=== PATIENT | male | born 1975 | race Caucasian/White ===

== ENCOUNTER 2016-02-12 21:55 | Emergency (ER) | payer OTHER ==
[2016-02-12] MEDS ORDERED: Sodium Chloride 0.9% 10 ML Syringe FLUSH PRN (22:13)
[2016-02-12] MEDS ORDERED: Morphine 4 MG/ML Syringe IVPUSH ONE (22:14)
[2016-02-12] MEDS ORDERED: Ondansetron 4 MG/2 ML SDV IVPUSH ONE (22:14)
[2016-02-12] MEDS ORDERED: Sodium Chloride 0.9% 1,000 ML IV ONE (22:14)
[2016-02-12 22:52] LABS: BASOPHILS PERCENT AUTO 0.3 % (0.2-1.2); EOSINOPHILS PERCENT AUTO 4.7 % (0.0-4.0); HEMATOCRIT 40.8 % (40.0-52.0); LYMPHOCYTES PERCENT AUTO 22.5 % (25.0-50.0); MEAN CORPUSCULAR HEMOGLOBIN 27.4 pg (26.0-32.0); MEAN CORPUSCULAR HGB CONC 31.9 g/dL (32.0-36.0); MEAN CORPUSCULAR VOLUME 85.9 fL (78.0-93.0); MONOCYTES PERCENT AUTO 9.5 % (2.0-11.0); RDW CV 13.2 % (10.0-15.0); RED BLOOD CELL COUNT 4.75 x10^6/uL (4.5-6.0)
[2016-02-12 23:11] LABS: APPEARANCE,URINE CLEAR (CLEAR); BILIRUBIN,URINE NEGATIVE (NEGATIVE); GLUCOSE,URINE NEGATIVE (NEGATIVE); KETONES,URINE NEGATIVE (NEGATIVE); LEUKOCYTE ESTERASE,URINE NEGATIVE (NEGATIVE); NITRITE,URINE NEGATIVE (NEGATIVE); OCCULT BLOOD,URINE NEGATIVE (NEGATIVE); PROTEIN,URINE NEGATIVE (NEGATIVE); UROBILINOGEN,URINE 0.2 EU/dL (0.2)
[2016-02-12 23:12] LABS: BACTERIA,URINE RARE /HPF (NEGATIVE); MUCUS,URINE NOT SEEN /LPF (NEGATIVE); RBC,URINE 0-5 /HPF (NOT SEEN); WBC,URINE 0-5 /HPF (NOT SEEN)
[2016-02-12 23:27] LABS: A/G RATIO 0.88; ALBUMIN 3.6 g/dL (3.4-5.0); ALKALINE PHOSPHATASE 92 U/L (46-116); BILIRUBIN TOTAL 0.3 mg/dL (0.2-1.0); C-REACTIVE PROTEIN 0.7 mg/dL (<=0.9); CALCIUM 8.7 mg/dL (8.5-10.1); CHLORIDE,CL 104 mmol/L (98-107); CORRECTED CALCIUM 9.02 mg/dL (8.5-10.1); CREATININE 0.9 mg/dL (0.70-1.30); ESTIMATED GFR > 60; GLUCOSE RANDOM 90 mg/dL (74-106); TROPONIN I < 0.017 ng/mL (<=0.056)
[2016-02-13 02:02] VITALS: BP 140/88
--- NOTE | 2016-02-13 07:14 | ER ---
Date of Service: 02/12/2016 SUBJECTIVE: The patient presents to the emergency room with complaints of lightheadedness and vertigo. The patient states that he has been experiencing these symptoms throughout the day today. He states that he has not been experiencing any chest pain or shortness of breath. He denies any abdominal discomfort and is not experiencing any headache. He states that the symptoms are worse when he is lying down, better when he is sitting up. He states that the symptoms got worse tonight when he was watching TV. PAST MEDICAL HISTORY: None. MEDICATIONS: None. ALLERGIES: NKDA. REVIEW OF SYSTEMS: General: No fever or chills. HEENT: No sore throat, rhinorrhea, or congestion. Respiratory: No shortness breath. Cardiac: Denies any substernal chest pain. No jaw, arm, neck, or back pain. GI: No nausea, vomiting, or diarrhea. No melena, hematochezia, or hematemesis. : Denies any dysuria. MUSCULOSKELETAL: No myalgias or arthralgias. PHYSICAL EXAMINATION: General: This is a 40-year-old male patient, who is in no acute distress. Vital Signs: Blood pressure 142/96, pulse rate is 68, temperature is 36.3, respiratory rate is 18, O2 saturations 97%. Skin: Warm, pink, and dry. HEENT. Head is normocephalic and atraumatic. Eyes, PERRLA. Extraocular movements are intact. Ears, TMs are clear. Mouth, oral mucosa is moist. No erythema or exudate noted in the hypopharynx. Neck: Supple. No masses. There is no lymphadenopathy. Lungs: Clear to auscultation. Heart: Regular rate and rhythm. Abdomen: Obese, nontender. There is no hepatosplenomegaly noted. There is no masses noted. Extremities: Without edema. Neurologic: He is alert, answers all questions appropriately. LABORATORY DATA: WBCs 6.6, hemoglobin is 13.0, platelets are 256. Chemistry; sodium is 141, potassium is 3.9, chloride is 104, bicarbonate is 29, BUN is 14, creatinine is 0.9. GFR is greater than 60. Glucose is 90, calcium is 8.7, corrected calcium is 9.02, total bilirubin is 0.3, AST is 16, ALT is 31, alkaline phosphatase is 92, CK is 92, troponin is less than 0.017. C-reactive protein is 0.7. Total protein is 7.7, albumin is 3.6. Urinalysis was obtained. It was noted to be within normal limits. He did test positive for opiates, however, he states he did eat 2 poppy-seed muffins yesterday for breakfast. A 12-lead EKG was obtained showing a sinus rhythm without any acute ST or T-wave abnormalities. CT scan of the patient's brain was obtained without and was negative for acute pathology. Two-view chest x-ray was obtained. There was evidence of what appeared to be some minor cardiomegaly. No obvious failure pattern. EMERGENCY ROOM COURSE: The patient was given a liter of normal saline IV. He did report feeling less lightheaded following this. He remained stable in my care in the emergency room. ASSESSMENT: Episodic lightheadedness. PLAN: The patient will be discharged, drink plenty of fluids. I am going to set him up for an echocardiogram given his cardiomegaly. He does not have a primary care provider and has not had for sometime. I did advise him to establish care. He should follow up in the clinic in 7 to 10 days for recheck. All questions were answered. SOHAK: 02/13/2016 06:48:16 MODL: 02/13/2016 07:07:41 /[id number]
[2016-02-17 16:04] LABS: 6 MAM (HEROIN METABOLITE) Not Detected (NOTDET); CODEINE Not Detected (NOTDET); HYDROCODONE Not Detected (NOTDET); HYDROMORPHONE Not Detected (NOTDET); MORPHINE Not Detected (NOTDET); NORHYDROCODONE Not Detected (NOTDET); NOROXYCODONE Not Detected (NOTDET); OXYCODONE Not Detected (NOTDET); OXYMORPHONE Not Detected (NOTDET)
== END 2016-02-12 23:58 | disposition home or self-care (01) ==
LOC: VM.ED 21:55
DX: R42 Dizziness and giddiness (principal)
CPT/HCPCS: 36415; 70450; 71020; 80053; 80305; 81001; 82550; 84484; 85025; 86140; 93005; 96365; 99284; G0479; G0480; J7030; 99283-GF

== ENCOUNTER 2016-02-14 07:43 | Emergency (ER) | payer OTHER ==
[2016-02-14 08:42] VITALS: BP 110/78
--- NOTE | 2016-02-14 22:04 | ER ---
Date of Service: 02/14/2016 SUBJECTIVE: The patient presents to the emergency room with complaints of continued lightheadedness. The patient was seen approximately 2 days ago with complaints of lightheadedness, with intermittent lightheadedness that he had been experiencing for approximately 1 day. He states at that time the lightheadedness or vertigo was worse when he was lying down. The patient had a chest x-ray, EKG and labs at that time, and his EKG did show evidence of a possible old inferior TX. Chest x-ray was performed as well and there was evidence of some increased cardiomegaly from when he has had a chest x- ray approximately 6 years prior. He did receive IV normal saline for rehydration at that time and states that he felt somewhat better at the time of discharge. He was; however, set up for an echocardiogram. The patient again presents to the emergency room this morning with similar symptoms. He also did have a CT scan of his brain on the 02/11 which was also negative for acute pathology. He denies striking his head. States he has not experienced any chest pain or shortness of breath, but states that his symptoms are worse now when he goes from lying to sitting. PAST MEDICAL HISTORY: None. MEDICATIONS: None. ALLERGIES: NKDA. REVIEW OF SYSTEMS: General: No fever or chills. HEENT: No sore throat, rhinorrhea, or congestion. Respiratory: No shortness breath. Cardiac: Denies any substernal chest pain. Possible subacute to chronic inferior TX as interpreted by the EKG machine. Again, denies any substernal chest pain. Gastrointestinal : No nausea, vomiting, or diarrhea. No melena, hematochezia, or hematemesis. Genitourinary : Denies any dysuria. Musculoskeletal: No myalgias or arthralgias. PHYSICAL EXAMINATION: General: This is a 40-year-old male patient, who is not acutely distressed. Vital Signs: Blood pressure is 110/78, pulse rate is 76, temperature is 36.4, respiratory rate 16, O2 saturation is 96% on room air. Orthostatics vital signs were obtained. There was no appreciable change in his orthostatics. HEENT: Head is normocephalic, atraumatic. Eyes, PERRLA. Extraocular movements are intact. There is no funduscopic papilledema. Ears, both of his tympanic membranes are impacted with cerumen and what appears to be cotton. The patient states that he does use cotton swabs to clean his ears. Neck: Supple without masses. There is no lymphadenopathy. No obvious carotid bruits are noted. Heart: Regular rate and rhythm. Normal S1, S2. No S3, S4, murmurs, clicks, or rubs. Abdomen: Soft and nontender. There is no hepatosplenomegaly noted. There is no masses noted. Extremities: Without edema. Neurologic: Cranial nerves 2 through 12 are intact. He has no nystagmus noted. His speech is fluent. His gait is within normal limits. DIAGNOSTIC DATA: EKG was obtained, again showing possible Q-wave in the inferior leads. No reciprocal change noted. No acute ST or T-wave abnormalities. Troponin was again obtained and was less than 0.017. EMERGENCY ROOM COURSE: The patient did have a significant amount of cerumen in both of his ears, it was obstructing both external ear canals. Both of his ears were extensively cleaned and large amounts of hardened cerumen were removed. The patient was unclear if this was possibly affecting his equilibrium. ASSESSMENT: Episodic lightheadedness. PLAN: I did contact [facility] and spoke with Dr. Carnes, the air tank assembler on-call. The patient is going to be set up for an appointment with Cardiology tomorrow at 1 o'clock in the afternoon. Also, the patient will undergo an echocardiogram as well as a carotid ultrasound tomorrow as well. Return to the emergency room if he develops any significant chest pain, shortness of breath or other worrisome signs or symptoms. All questions were answered. MWK: 02/14/2016 16:45:18 MODL: 02/14/2016 21:54:30 /[id number]
== END 2016-02-14 09:50 | disposition home or self-care (01) ==
LOC: VM.ED 07:43
DX: R42 Dizziness and giddiness (principal)
CPT/HCPCS: 36415; 69210; 84484; 93005; 99283-GF; 99284

== ENCOUNTER 2016-05-12 06:19 | Emergency (ER) | payer SELFPAY ==
[2016-05-12] MEDS ORDERED: Sodium Chloride 0.9% 10 ML Syringe FLUSH PRN (06:49)
[2016-05-12] MEDS ORDERED: Pantoprazole 40 MG Vial IVPUSH ONE (06:52)
[2016-05-12] MEDS ORDERED: Famotidine 20 MG/2 ML SDV IVPUSH ONE (06:52)
[2016-05-12] MEDS ORDERED: GI Cocktail Oral Solution 30 ML PO ONE (06:52)
[2016-05-12] MEDS ORDERED: Ondansetron 4 MG/2 ML SDV IVPUSH ONE (06:53)
[2016-05-12] MEDS ORDERED: Sodium Chloride 0.9% 1,000 ML IV SCH ×2 (07:00→10:00)
[2016-05-12] MEDS ORDERED: Iopamidol 612 MG/ML 100 ML Bottle IVPUSH ONE (07:32)
[2016-05-12] MEDS ORDERED: Sodium Chloride 0.9% 100 ML IV ONE (07:32)
[2016-05-12 07:54] LABS: CHLORIDE,CL 103 mmol/L (98-107); SODIUM,NA 140 mmol/L (136-145)
[2016-05-12 09:15] LABS: CHLORIDE,CL 102 mmol/L (98-107); SODIUM,NA 140 mmol/L (136-145)
--- NOTE | 2016-05-12 09:27 | EDM.PDOC ---
ED HPI GI/ABDOMINAL - General Chief Complaint: Gastrointestinal Problem Stated Complaint: Epigastric Pain Time Seen by Provider: 05/12/16 06:44 Source of Information: Reports: Patient, Old records, RN, RN notes reviewed History Limitations: Reports: No limitations - History of Present Illness INITIAL COMMENTS - FREE TEXT/NARRATIVE: Patient presents to the ED at [facility] with a 2 day history of severe LUQ/ epigastric pain. Patient states he was seen at the [facility] in [place] yesterday for the same problem. He states he was told he had GERD and was sent home with a prescription for Omeprazole. Patient states his pain has progressively gotten worse. He feels extremely nauseated. He has not vomited. He has not taken any other medications at home for his symptoms. Patient denies any abdominal injury or trauma. No previous abdominal surgeries. Patient denies any bloody stools. No diarrhea. No other symptoms. Symptom Onset Date: 05/10/16 Timing/Duration: Reports: Getting worse Location: LUQ (epigastric) Quality: Reports: burning, stabbing, throbbing Severity: moderate Context: Denies: sick contact, bad/questionable food, out of country travel, recent surgery, recent trauma Associated Symptoms: Reports: loss of appetite, nausea/vomiting. Denies: diarrhea, bloody stools - Related Data Allergies/ADRs: Allergies Allergy/AdvReac Type Severity Reaction Status Date / Time No Known Allergies Allergy Verified 05/12/16 06:20 Home Meds: Home Meds Mg Trisilicate/AlH/NahCO3/AA [Gaviscon 80-14.2 MG] 2 each PO Q4HR PRN 05/12/16 [ History] Omeprazole Magnesium [Prilosec Otc] 20 mg PO BID 05/12/16 [History] Past Medical History - Past Health History Medical/Surgical History: Denies Medical/Surgical History - Past Surgical History HEENT Surgical History: Reports: Tonsillectomy Social & Family History - Tobacco Use Smoking Status *Q: Never Smoker - Caffeine Use Caffeine Use: Reports: Soda - Recreational Drug Use Recreational Drug Use: No ED ROS GENERAL - Review of Systems Review Of Systems: See Below Constitutional: Reports: night sweats, decreased appetite. Denies: fever, chills, weakness Respiratory: Denies: Shortness of Breath, Cough Cardiovascular: Denies: Chest pain, Palpitations GI/Abdominal: Reports: Abdominal pain, Nausea. Denies: Black stool, Bloody stool, Diarrhea, Mucous in stool, Vomiting Skin: Reports: no symptoms Neurological: Reports: No Symptoms. Denies: Dizziness, Headache ED EXAM, GI/ABD - Physical Exam Exam: See Below Exam Limited By: No limitations General Appearance: alert, moderate distress Respiratory/Chest: no respiratory distress, lungs clear, normal breath sounds Cardiovascular: regular rate, rhythm GI/Abdominal: hyperactive bowel sounds, tenderness, guarding, rigidity. No: distention, rebound Neurological: alert, oriented Skin Exam: Warm, Dry, Intact, Normal color, No rash Course - Vital Signs Last Recorded V/S: Last Vital Signs Temp 37.1 C 05/12/16 06:23 Pulse 65 05/12/16 06:23 Resp 16 05/12/16 06:23 BP 122/78 05/12/16 06:23 Pulse Ox 96 05/12/16 06:23 - Orders/Labs/Meds Orders: Active Orders 24 hr Category Date Time Status EKG 12 Lead [EKG Documentation Completion] [RC] STAT Care 05/12/16 06:51 Active Chest 2V [CR] Stat Exams 05/12/16 06:50 Taken Chest Abdomen Pelvis w Cont [CT] Stat Exams 05/12/16 07:18 Taken AMPHET/METH EXT CONF (GCMS) Stat Lab 05/12/16 06:55 Received CULTURE BLOOD [BC] Stat Lab 05/12/16 09:46 Ordered CULTURE BLOOD [BC] Stat Lab 05/12/16 09:46 Ordered LACTIC ACID [CHEM] Stat Lab 05/12/16 09:46 Ordered Sodium Chloride 0.9% [Normal Saline] 1,000 ml Med 05/12/16 07:00 Active IV ASDIRECTED Sodium Chloride 0.9% [Normal Saline] 1,000 ml Med 05/12/16 10:00 Active IV ASDIRECTED Sodium Chloride 0.9% [Saline Flush] Med 05/12/16 06:49 Active 10 ml FLUSH ASDIRECTED PRN metroNIDAZOLE/Normal Saline [Flagyl 500 MG in NS 100 ML Med 05/12/16 09:48 Active ] 500 mg Premix Bag 1 bag IV ONETIME Blood Culture x2 Reflex Set [OM.PC] Stat Oth 05/12/16 09:46 Ordered Peripheral IV Insertion Adult [OM.PC] Routine Oth 05/12/16 06:49 Ordered Medication Orders Sodium Chloride (Normal Saline) 1,000 mls @ 999 mls/hr IV ASDIRECTED DIANNE Last Admin: 05/12/16 07:16 Dose: 999 mls/hr Sodium Chloride (Normal Saline) 1,000 mls @ 999 mls/hr IV ASDIRECTED DIANNE Metronidazole 500 mg/ Premix 100 mls @ 100 mls/hr IV ONETIME ONE Stop: 05/12/16 10:47 Sodium Chloride (Saline Flush) 10 ml FLUSH ASDIRECTED PRN PRN Reason: Keep Vein Open Labs: Laboratory Tests 05/12/16 05/12/16 05/12/16 Range/Units 06:55 06:55 07:15 WBC 11.1 H (4.0-10.0) x10^3/uL RBC 5.32 (4.5-6.0) x10^6/uL Hgb 14.7 (14.0-18.0) g/dL Hct 44.3 (40.0-52.0) % MCV 83.3 (78.0-93.0) fL MCH 27.6 (26.0-32.0) pg MCHC 33.2 (32.0-36.0) g/dL RDW Coeff of [place] 13.2 (10.0-15.0) % Plt Count 309 (130-400) x10^3/uL Neut % (Auto) 85.0 H (50.0-80.0) % Lymph % (Auto) 6.7 L (25.0-50.0) % [place] % (Auto) 7.3 (2.0-11.0) % Eos % (Auto) 0.7 (0.0-4.0) % Baso % (Auto) 0.3 (0.2-1.2) % Sodium (136-145) mmol/L Potassium (3.5-5.1) mmol/L Chloride (98-107) mmol/L Carbon Dioxide (21-32) mmol/L BUN (7-18) mg/dL Creatinine (0.70-1.30) mg/dL Est Cr Clr Drug Dosing mL/min Estimated GFR (MDRD) Glucose (74-106) mg/dL Hemoglobin A1c (4.5-6.2) % Calcium (8.5-10.1) mg/dL Corrected Calcium (8.5-10.1) mg/dL Total Bilirubin (0.2-1.0) mg/dL AST (15-37) U/L ALT (16-63) U/L Alkaline Phosphatase (46-116) U/L Creatine Kinase (39-308) U/L Creatine Kinase Index CK-MB (CK-2) POC Troponin I (0.00-0.08) ng/mL C-Reactive Protein (<=0.9) mg/dL Total Protein (6.4-8.2) g/dL Albumin (3.4-5.0) g/dL Globulin Albumin/Globulin Ratio Amylase (25-115) U/L Lipase (73-393) U/L Urine Color Dark yellow H (YELLOW) Urine Appearance Slightly cloudy H (CLEAR) Urine pH 5.5 (5.0-8.0) Ur Specific [place] 1.020 Urine Protein 30 H (NEGATIVE) mg/dL Urine Glucose (UA) 100 H (NEGATIVE) mg/dL Urine Ketones >=160 H (NEGATIVE) mg/dL Urine Occult Blood Trace-intact H (NEGATIVE) Urine Nitrite Negative (NEGATIVE) Urine Bilirubin Large H (NEGATIVE) Urine Urobilinogen >=8.0 H (0.2) EU/dL Ur Leukocyte Esterase Negative (NEGATIVE) Urine RBC 5-10 H (NOT SEEN) /HPF Urine WBC 0-5 (NOT SEEN) /HPF Ur Squamous Epith Cells Not seen (NEGATIVE) /HPF Urine Bacteria Few H (NEGATIVE) /HPF Urine Mucus Moderate H (NEGATIVE) /LPF Urine Opiates Screen Negative (NEAGTIVE) Ur Buprenorphine Scrn Negative (NEGATIVE) Ur Oxycodone Screen Negative (NEGATIVE) Urine Methadone Screen Negative (NEGATIVE) Ur Barbiturates Screen Negative (NEGATIVE) Ur Tricyclics Screen Negative (NEGATIVE) Ur Amphetamine Screen Negative (NEGATIVE) U Methamphetamines Scrn Positive H (NEGATIVE) Urine MDMA Screen Negative (NEGATIVE) U Benzodiazepines Scrn Negative (NEGATIVE) U Cocaine Metab Screen Negative (NEGATIVE) U Marijuana (THC) Screen Negative (NEGATIVE) 05/12/16 05/12/16 05/12/16 Range/Units 07:15 07:15 07:15 WBC (4.0-10.0) x10^3/uL RBC (4.5-6.0) x10^6/uL Hgb (14.0-18.0) g/dL Hct (40.0-52.0) % MCV (78.0-93.0) fL MCH (26.0-32.0) pg MCHC (32.0-36.0) g/dL RDW Coeff of [place] (10.0-15.0) % Plt Count (130-400) x10^3/uL Neut % (Auto) (50.0-80.0) % Lymph % (Auto) (25.0-50.0) % [place] % (Auto) (2.0-11.0) % Eos % (Auto) (0.0-4.0) % Baso % (Auto) (0.2-1.2) % Sodium 140 140 (136-145) mmol/L Potassium 3.9 3.9 (3.5-5.1) mmol/L Chloride 103 102 (98-107) mmol/L Carbon Dioxide 26 25 (21-32) mmol/L BUN 10 11 (7-18) mg/dL Creatinine 1.1 1.1 (0.70-1.30) mg/dL Est Cr Clr Drug Dosing 104.56 104.56 mL/min Estimated GFR (MDRD) > 60 > 60 Glucose 129 H 128 H (74-106) mg/dL Hemoglobin A1c 5.3 (4.5-6.2) % Calcium 9.1 9.2 (8.5-10.1) mg/dL Corrected Calcium 9.28 (8.5-10.1) mg/dL Total Bilirubin 4.5 H (0.2-1.0) mg/dL AST 280 H (15-37) U/L ALT 280 H (16-63) U/L Alkaline Phosphatase 190 H (46-116) U/L Creatine Kinase 81 (39-308) U/L Creatine Kinase Index Cancelled CK-MB (CK-2) Cancelled POC Troponin I (0.00-0.08) ng/mL C-Reactive Protein 1.6 H (<=0.9) mg/dL Total Protein 8.0 (6.4-8.2) g/dL Albumin 3.9 (3.4-5.0) g/dL Globulin 4.1 Albumin/Globulin Ratio 0.95 Amylase 1993 H (25-115) U/L Lipase 38189 H (73-393) U/L Urine Color (YELLOW) Urine Appearance (CLEAR) Urine pH (5.0-8.0) Ur Specific [place] Urine Protein (NEGATIVE) mg/dL Urine Glucose (UA) (NEGATIVE) mg/dL Urine Ketones (NEGATIVE) mg/dL Urine Occult Blood (NEGATIVE) Urine Nitrite (NEGATIVE) Urine Bilirubin (NEGATIVE) Urine Urobilinogen (0.2) EU/dL Ur Leukocyte Esterase (NEGATIVE) Urine RBC (NOT SEEN) /HPF Urine WBC (NOT SEEN) /HPF Ur Squamous Epith Cells (NEGATIVE) /HPF Urine Bacteria (NEGATIVE) /HPF Urine Mucus (NEGATIVE) /LPF Urine Opiates Screen (NEAGTIVE) Ur Buprenorphine Scrn (NEGATIVE) Ur Oxycodone Screen (NEGATIVE) Urine Methadone Screen (NEGATIVE) Ur Barbiturates Screen (NEGATIVE) Ur Tricyclics Screen (NEGATIVE) Ur Amphetamine Screen (NEGATIVE) U Methamphetamines Scrn (NEGATIVE) Urine MDMA Screen (NEGATIVE) U Benzodiazepines Scrn (NEGATIVE) U Cocaine Metab Screen (NEGATIVE) U Marijuana (THC) Screen (NEGATIVE) 05/12/16 Range/Units 07:24 WBC (4.0-10.0) x10^3/uL RBC (4.5-6.0) x10^6/uL Hgb (14.0-18.0) g/dL Hct (40.0-52.0) % MCV (78.0-93.0) fL MCH (26.0-32.0) pg MCHC (32.0-36.0) g/dL RDW Coeff of [place] (10.0-15.0) % Plt Count (130-400) x10^3/uL Neut % (Auto) (50.0-80.0) % Lymph % (Auto) (25.0-50.0) % [place] % (Auto) (2.0-11.0) % Eos % (Auto) (0.0-4.0) % Baso % (Auto) (0.2-1.2) % Sodium (136-145) mmol/L Potassium (3.5-5.1) mmol/L Chloride (98-107) mmol/L Carbon Dioxide (21-32) mmol/L BUN (7-18) mg/dL Creatinine (0.70-1.30) mg/dL Est Cr Clr Drug Dosing mL/min Estimated GFR (MDRD) Glucose (74-106) mg/dL Hemoglobin A1c (4.5-6.2) % Calcium (8.5-10.1) mg/dL Corrected Calcium (8.5-10.1) mg/dL Total Bilirubin (0.2-1.0) mg/dL AST (15-37) U/L ALT (16-63) U/L Alkaline Phosphatase (46-116) U/L Creatine Kinase (39-308) U/L Creatine Kinase Index CK-MB (CK-2) POC Troponin I 0.00 (0.00-0.08) ng/mL C-Reactive Protein (<=0.9) mg/dL Total Protein (6.4-8.2) g/dL Albumin (3.4-5.0) g/dL Globulin Albumin/Globulin Ratio Amylase (25-115) U/L Lipase (73-393) U/L Urine Color (YELLOW) Urine Appearance (CLEAR) Urine pH (5.0-8.0) Ur Specific [place] Urine Protein (NEGATIVE) mg/dL Urine Glucose (UA) (NEGATIVE) mg/dL Urine Ketones (NEGATIVE) mg/dL Urine Occult Blood (NEGATIVE) Urine Nitrite (NEGATIVE) Urine Bilirubin (NEGATIVE) Urine Urobilinogen (0.2) EU/dL Ur Leukocyte Esterase (NEGATIVE) Urine RBC (NOT SEEN) /HPF Urine WBC (NOT SEEN) /HPF Ur Squamous Epith Cells (NEGATIVE) /HPF Urine Bacteria (NEGATIVE) /HPF Urine Mucus (NEGATIVE) /LPF Urine Opiates Screen (NEAGTIVE) Ur Buprenorphine Scrn (NEGATIVE) Ur Oxycodone Screen (NEGATIVE) Urine Methadone Screen (NEGATIVE) Ur Barbiturates Screen (NEGATIVE) Ur Tricyclics Screen (NEGATIVE) Ur Amphetamine Screen (NEGATIVE) U Methamphetamines Scrn (NEGATIVE) Urine MDMA Screen (NEGATIVE) U Benzodiazepines Scrn (NEGATIVE) U Cocaine Metab Screen (NEGATIVE) U Marijuana (THC) Screen (NEGATIVE) Meds: Medications Generic Name Dose Route Start Last Admin Trade Name Freq PRN Reason Stop Dose Admin Sodium Chloride 1,000 mls @ 999 mls/hr 05/12/16 07:00 05/12/16 07:16 Normal Saline IV 999 mls/hr ASDIRECTED DIANNE Administration Sodium Chloride 1,000 mls @ 999 mls/hr 05/12/16 10:00 Normal Saline IV ASDIRECTED DIANNE Metronidazole 500 mg/ Premix 100 mls @ 100 mls/hr 05/12/16 09:48 IV 05/12/16 10:47 ONETIME ONE Sodium Chloride 10 ml 05/12/16 06:49 Saline Flush FLUSH ASDIRECTED PRN Keep Vein Open Discontinued Medications Generic Name Dose Route Start Last Admin Trade Name Freq PRN Reason Stop Dose Admin Al Hydroxide/Mg Hydroxide 30 ml 05/12/16 06:52 05/12/16 07:17 Gi Cocktail PO 05/12/16 06:53 30 ml ONETIME ONE Administration Ceftriaxone Sodium 1 gm 05/12/16 09:47 Rocephin IVPUSH 05/12/16 09:48 ONETIME ONE Famotidine 20 mg 05/12/16 06:52 05/12/16 07:17 Pepcid IVPUSH 05/12/16 06:53 20 mg ONETIME ONE Administration Sodium Chloride 100 mls @ 2 mls/sec 05/12/16 07:32 05/12/16 07:59 Normal Saline IV 05/12/16 07:33 2 mls/sec ONETIME ONE Administration Iopamidol 100 ml 05/12/16 07:32 05/12/16 07:58 Isovue-300 (61%) IVPUSH 05/12/16 07:33 100 ml ONETIME ONE Administration Ondansetron HCl 4 mg 05/12/16 06:53 05/12/16 07:20 Zofran IVPUSH 05/12/16 06:54 4 mg ONETIME ONE Administration Pantoprazole Sodium 40 mg 05/12/16 06:52 05/12/16 07:21 Protonix Iv IVPUSH 05/12/16 06:53 40 mg ONETIME ONE Administration - Radiology Interpretation Free Text/Narrative:: Chest xray: Lungs are clear. No pleural effusion. Cardiomediastinal silhouette unremarkable. No acute cardiopulmonary process seen. CT Abd/Pelvis: Cholelithiasis with acute cholecystitis and pancreatitis as well as secondary inflammation of the duodenum. CT Results Date: 05/12/16 CT Results Time: 09:32 Departure - Departure Time of Disposition: 10:07 Disposition: Home, Self-Care 01 Condition: good Clinical Impression: Acute cholecystitis Pancreatitis Qualifiers: Chronicity: acute Pancreatitis type: unspecified pancreatitis type Acute pancreatitis complication: unspecified Qualified Code(s): K85.90 - Acute pancreatitis without necrosis or infection, unspecified Abdominal pain Qualifiers: Abdominal location: left upper quadrant Qualified Code(s): R10.12 - Left upper quadrant pain Nausea & vomiting Qualifiers: Vomiting type: unspecified Vomiting Intractability: non-intractable Qualified Code(s): R11.2 - Nausea with vomiting, unspecified Forms: Interfacility Transfer [facility] ED Communication - ED Communication Date/Time Date: 05/12/16 Time Called: 09:49 - Discussed Case With (1) Discussed Case With (1): Admitting Provider (Dr. Ballesteros, hospitalist) - Conversation Summary Radiology Reading Discussed with Radiologist: Yes - Problem List Review Problem List Initiated/Reviewed/Updated: Yes - My Orders Last 24 Hours: My Active Orders 05/12/16 06:49 Sodium Chloride 0.9% [Saline Flush] 10 ml FLUSH ASDIRECTED PRN Peripheral IV Insertion Adult [OM.PC] Routine 05/12/16 06:50 Chest 2V [CR] Stat 05/12/16 06:51 EKG 12 Lead [EKG Documentation Completion] [RC] STAT 05/12/16 06:55 AMPHET/METH EXT CONF (GCMS) Stat 05/12/16 07:00 Sodium Chloride 0.9% [Normal Saline] 1,000 ml IV ASDIRECTED 05/12/16 07:18 Chest Abdomen Pelvis w Cont [CT] Stat 05/12/16 09:46 CULTURE BLOOD [BC] Stat CULTURE BLOOD [BC] Stat LACTIC ACID [CHEM] Stat Blood Culture x2 Reflex Set [OM.PC] Stat 05/12/16 09:48 metroNIDAZOLE/Normal Saline [Flagyl 500 MG in NS 100 ML] 500 mg Premix Bag 1 bag IV ONETIME 05/12/16 10:00 Sodium Chloride 0.9% [Normal Saline] 1,000 ml IV ASDIRECTED - Assessment/Plan Last 24 Hours: My Active Orders 05/12/16 06:49 Sodium Chloride 0.9% [Saline Flush] 10 ml FLUSH ASDIRECTED PRN Peripheral IV Insertion Adult [OM.PC] Routine 05/12/16 06:50 Chest 2V [CR] Stat 05/12/16 06:51 EKG 12 Lead [EKG Documentation Completion] [RC] STAT 05/12/16 06:55 AMPHET/METH EXT CONF (GCMS) Stat 05/12/16 07:00 Sodium Chloride 0.9% [Normal Saline] 1,000 ml IV ASDIRECTED 05/12/16 07:18 Chest Abdomen Pelvis w Cont [CT] Stat 05/12/16 09:46 CULTURE BLOOD [BC] Stat CULTURE BLOOD [BC] Stat LACTIC ACID [CHEM] Stat Blood Culture x2 Reflex Set [OM.PC] Stat 05/12/16 09:48 metroNIDAZOLE/Normal Saline [Flagyl 500 MG in NS 100 ML] 500 mg Premix Bag 1 bag IV ONETIME 05/12/16 10:00 Sodium Chloride 0.9% [Normal Saline] 1,000 ml IV ASDIRECTED Plan: Patient will be transferred to [facility]. Report called to Dr. Ballesteros , hospitalist. Patient accepted.
[2016-05-12] MEDS ORDERED: cefTRIAXone 1 GM Vial IVPUSH ONE (09:47)
[2016-05-12] MEDS ORDERED: metroNIDAZOLE/Normal Saline 500 MG in Premix Bag 1 BAG IV ONE (09:48)
[2016-05-12 10:15] VITALS: BP 130/67
== END 2016-05-12 10:50 | disposition home or self-care (01) ==
LOC: VM.ED 06:19
DX: K85.90 Acute pancreatitis without necrosis or infection, unspecified (principal); K81.0 Acute cholecystitis
CPT/HCPCS: 71020; 71260; 74177; 80048; 80053; 80305; 81001; 82150; 82550; 83036; 83605; 83690; 84484; 85025; 86140; 87040; 93005; 96361; 96365; 96375; 99285; A9270; C9113; G0480; J0696; J2405; J7030; J7050; Q9967; S0028